=== PATIENT | male | born 1995 | race Caucasian/White ===

== ENCOUNTER 2018-03-31 00:29 | Outpatient (CLI) | payer OTHER, SELFPAY ==
--- NOTE | 2018-03-31 11:00 | DI.US_ITS ---
Please see scanned in echo report.
== END 2018-03-31 00:49 ==
PROVIDERS: PCP Pediatrics; Visit Provider Pediatrics Pediatric Cardiology
DX: Q23.1 Congenital insufficiency of aortic valve (principal)
CPT/HCPCS: 93303

== ENCOUNTER 2018-03-31 02:39 | Outpatient (CLI) | payer OTHER, SELFPAY | END 2018-03-31 02:59 | PROVIDERS: PCP Pediatrics; Visit Provider Pediatrics Pediatric Cardiology | DX: Q23.1 Congenital insufficiency of aortic valve (principal) | CPT/HCPCS: 93005; 93010 ==